=== PATIENT | male | born 1975 ===

== ENCOUNTER 2016-08-25 22:14 | Emergency (ER) | payer OTHER ==
[~2016-08-25] VITALS: Ht 185.4 cm; Wt 158.8 kg
--- NOTE | 2016-08-25 22:25 | NUR ---
TO BED 2 AMBULATORY C/O COUGH AND CONGESTION SINCE MAY. PT AAOX4 NO ACUTE DISTRESS NOTED, RESP EVEN AND UNLABORED. PENDING ER MD SAINI.
--- NOTE | 2016-08-25 22:59 | NUR ---
ER MD AT BEDSIDE TO EVAL PT WITH ORDERS RECEIVED.
[2016-08-25] MEDS: ALBUTEROL FS 2.5 MG/3 ML VIAL.NEB NEB ONE (23:42)
[2016-08-25] MEDS: IPRATROPIUM NEB FS 0.5 MG/2.5 ML AMPUL.NEB NEB ONE (23:42)
[2016-08-25] MEDS ORDERED: ALBUTEROL FS 2.5 MG/3 ML VIAL.NEB ONE (23:43)
[2016-08-25] MEDS ORDERED: IPRATROPIUM NEB FS 0.5 MG/2.5 ML AMPUL.NEB ONE (23:43)
[2016-08-25] MEDS ORDERED: AZITHROMYCIN 250 MG TABLET ONE (23:44)
[2016-08-25] MEDS ORDERED: predniSONE 20 MG TABLET ONE (23:44)
[2016-08-25] MEDS: predniSONE 20 MG TABLET PO ONE (23:49)
[2016-08-25] MEDS: AZITHROMYCIN 250 MG TABLET PO ONE (23:49)
--- NOTE | 2016-08-25 23:49 | NUR ---
RT AT BEDSIDE TO GIVEN HHN TX.
[2016-08-26] MEDS ORDERED: TDAP [DIPH/PERTUSSIS/TET] 0.5 ML VIAL IM ONE (00:25)
[2016-08-26] MEDS: TDAP [DIPH/PERTUSSIS/TET] 0.5 ML VIAL IM ONE (01:08)
--- NOTE | 2016-08-26 01:09 | NUR ---
Patient discharged to home in stable condition. Written and verbal after care instructions given. Patient verbalizes understanding of instruction. ambulatory with a steady gait noted. pt aaox4 no acute distress noted, resp even and unlabored.
[2016-08-26 01:10] VITALS: BP 132/76
== END 2016-08-26 01:11 | disposition home or self-care (01) ==
LOC: ER 22:14
DX: J40 Bronchitis, not specified as acute or chronic (principal); J45.909 Unspecified asthma, uncomplicated; E66.01 Morbid (severe) obesity due to excess calories; Z23 Encounter for immunization
CPT/HCPCS: 71010-TC; 90715; A4606; Z7610

== ENCOUNTER 2016-09-04 12:46 | Emergency (ER) | payer OTHER ==
[~2016-09-04] VITALS: Ht 185.4 cm; Wt 158.8 kg
--- NOTE | 2016-09-04 12:57 | NUR ---
BIB SELF, CC: COUGH AND CONGESTION AND SOB SINCE THIS MORNING, PATIENT HAS HX OF RECENT RESP. INFECTION, PATIENT STATES HE RAN OUT OF MEDICATION, PATIENT IS ABLE TO SPEAK IN FULL SENTENSES, PATIENT IS VERBALLY RESPONSIVE, A/O X4, WILL CONTINUE TO MONITOR CLOSELY, MD AT BEDSIDE UPON ARRIVAL.
[2016-09-04] MEDS ORDERED: ALBUTEROL FS 2.5 MG/3 ML VIAL.NEB ONE (13:26)
[2016-09-04] MEDS ORDERED: IPRATROPIUM NEB FS 0.5 MG/2.5 ML AMPUL.NEB ONE (13:27)
[2016-09-04] MEDS ORDERED: ALBUTEROL FS 2.5 MG/3 ML VIAL.NEB CONTNEB ONE (13:30)
[2016-09-04] MEDS ORDERED: IPRATROPIUM NEB FS 0.5 MG/2.5 ML AMPUL.NEB NEB ONE (13:30)
[2016-09-04 14:01] VITALS: BP 130/85
--- NOTE | 2016-09-04 14:02 | NUR ---
Patient discharged to home in stable condition. Written and verbal after care instructions given. Patient verbalizes understanding of instruction. IV removed. Catheter intact and site benign. Pressure and 4x4 applied to site. No bleeding noted. nad noted upon discharge
== END 2016-09-04 14:01 | disposition home or self-care (01) ==
LOC: ER 12:48
DX: J45.909 Unspecified asthma, uncomplicated (principal); E66.01 Morbid (severe) obesity due to excess calories
CPT/HCPCS: 94640; 99283; A4606; Z7610